=== PATIENT | male | born 1995 | race Caucasian/White ===

== ENCOUNTER 2016-05-08 19:32 | Emergency (ER) | payer OTHER ==
[2016-05-08 21:17] LABS: BASO % 0.5 % (0.0-1.0); EOS # 0.4 K/mm3 (0.0-0.50); EOS % 3.5 % (0.0-3.0); LARGE UNSTAINED CELL # 0.1 K/mm3 (0.0-0.4); LARGE UNSTAINED CELL % 1.4 % (0.0-4.0); LYMPH # 2.8 K/mm3 (1.5-6.5); LYMPH % 26.5 % (24.0-44.0); MEAN CORPUSCULAR HEMOGLOBIN 29.4 pg (27.0-33.0); MEAN CORPUSCULAR HGB CONC 33.6 g/dl (32.0-36.5); MEAN CORPUSCULAR VOLUME 87.5 fl (80.0-96.0); MONO # 0.5 K/mm3 (0.0-0.8); MONO % 4.7 % (0.0-5.0); NEUTROPHILS # 6.3 K/mm3 (1.8-7.7); NEUTROPHILS % 63.3 % (36.0-66.0); PLATELET COUNT, AUTOMATED 266 k/mm3 (150-450); RED CELL DISTRIBUTION WIDTH 11.6 % (11.5-14.5); WHITE BLOOD COUNT 9.9 K/mm3 (4.0-10.0)
[2016-05-08 21:21] LABS: ANION GAP 7 MEQ/L (8-16); BLOOD UREA NITROGEN 11 MG/DL (7-18); CALCIUM LEVEL 9.2 MG/DL (8.5-10.1); CARBON DIOXIDE LEVEL 30 MEQ/L (21-32); CHLORIDE LEVEL 105 MEQ/L (98-107); CREATININE FOR GFR 1.14 MG/DL (0.70-1.30); FREE T4 1.12 NG/DL (0.78-1.33); GLUCOSE, FASTING 95 MG/DL (70-105); PHOSPHORUS LEVEL 3.3 MG/DL (2.5-4.9); SODIUM LEVEL 142 MEQ/L (136-145)
--- NOTE | 2016-05-08 23:04 | EDDOCDS ---
Physician Documentation [facility] Name: Tee Vargas Age: 20 yrs Sex: Male : 1995 Arrival Date: 05/08/2016 Time: 19:32 Bed 10 Private MD: Disposition: 05/08/16 22:52 Discharged to Home/Self Care. Impression: Chest pain, unspecified, Palpitations. - Condition is Stable. - Discharge Instructions: Nonspecific Chest Pain, Palpitations. - Medication Reconciliation, Local Pharmacy Hours, [facility] form. - Follow up: [facility], [facility]; When: 1 - 2 days; Reason: Recheck today's complaints. - Problem is new. - Symptoms have improved. - Notes: You were seen in the ED for chest pain and palpitations. Bloodwork along with EKG of the heart, chest Xray and cardiac monitoring showed no acute findings at this time. As you are feeling better you may return home to follow up with your primary doctor at [facility] for recheck and ongoing evaluation - please call in the morning to arrange to be seen. Return to the ED for any return of chest pain, trouble breathing, lightheadedness, loss of consciousness, or any other concerns. Historical: - Allergies: No known drug Allergies; - Home Meds: 1. OxyContin Oral Patient reports that last use was one week ago 2. ibuprofen 200 mg Oral cap 2 caps every 4-6 hours 3. Nasal Decongestant (phenylephrine) oral oral unknown dose and nasal decongestant medication. - PMHx: none; - PSHx: wisdom teeth removal; Tonsillectomy; - Social history: Smoking status: Patient uses tobacco products, heavy tobacco smoker. No barriers to communication noted, The patient speaks fluent Serbian, Speaks appropriately for age. - Family history: Not pertinent. - : The pt / caregiver states he / she is not on anticoagulants. Home medication list is obtained from the patient. - Exposure Risk Screening:: None identified. Vital Signs: 05/08 19:33 BP 184 / 89; Pulse 118; Resp 20; Temp 97.2(T); Pulse Ox 98% on R/A; Weight 86.18 kg / handy 189.99 lbs (R); Height 6 ft. 4 in. (193.04 cm) (R); Pain 2/10; 20:28 BP 167 / 97 (auto/); kas2 20:29 Pulse 88 MON; Pulse Ox 97% ; kas2 20:43 BP 151 / 82 (auto/); kas2 20:43 Pulse 72 MON; Pulse Ox 98% ; kas2 20:58 BP 145 / 80 (auto/); kas2 20:58 Pulse 68 MON; Pulse Ox 97% ; kas2 21:13 BP 147 / 80 (auto/); kas2 21:13 Pulse 74 MON; Pulse Ox 98% ; kas2 21:28 BP 142 / 77 (auto/); kas2 21:28 Pulse 66 MON; Pulse Ox 97% ; kas2 21:43 BP 137 / 72 (auto/); kas2 21:43 Pulse 66 MON; Pulse Ox 96% ; kas2 21:58 BP 139 / 74 (auto/); kas2 21:58 Pulse 68 MON; Pulse Ox 98% ; kas2 22:13 BP 133 / 74 (auto/); kas2 22:13 Pulse 60 MON; Pulse Ox 97% ; kas2 22:28 BP 139 / 72 (auto/); kas2 22:28 Pulse 60 MON; Pulse Ox 97% ; kas2 22:43 BP 138 / 73 (auto/); kas2 22:43 Pulse 60 MON; Pulse Ox 95% ; kas2 23:01 Resp 18; Temp 98.2(O); Pain 0/10; kas2 19:33 Body Mass Index 23.13 (86.18 kg, 193.04 cm) handy MDM: 19:44 ECG WITH READING ER PHYS+CARDIAG ordered. EDMS 20:46 Slot Key Person/Pulse Ox/q 30 min VS ordered. br1 20:46 IV Saline Lock ordered. br1 20:46 Rhythm Strip to chart ordered. br1 20:46 Undress patient appropriately for examination ordered. br1 20:47 Basic Metabolic Profile Ordered. EDMS 20:47 CBC with Diff Ordered. EDMS 20:47 Cardiac Injury Profile Ordered. EDMS 20:47 Troponin Ordered. EDMS 20:47 TSH with Free T4 Ordered. EDMS 20:47 Magnesium Level Ordered. EDMS 20:47 Phosphorous Level Ordered. EDMS 20:48 Chest, 2 View (pa\E\lat) Ordered. EDMS 20:48 D-Dimer Quant Ordered. EDMS 22:44 Basic Metabolic Profile Reviewed. br1 22:44 CBC with Diff Reviewed. br1 22:44 Cardiac Injury Profile Reviewed. br1 22:44 Troponin Reviewed. br1 22:44 TSH with Free T4 Reviewed. br1 22:44 Magnesium Level Reviewed. br1 22:44 Phosphorous Level Reviewed. br1 22:44 D-Dimer Quant Reviewed. br1 Signatures: Dispatcher [employer] Richardson Carrillo MD MD br1 Reed Evans RN RN Anabell Reddy RN RN kas2 MTDD
--- NOTE | 2016-05-08 23:05 | EDDOCDS ---
Nurse's Notes [facility] Name: Tee Vargas Age: 20 yrs Sex: Male : 1995 Arrival Date: 05/08/2016 Time: 19:32 Bed 10 Private MD: Diagnosis: Chest pain, unspecified;Palpitations Presentation: 05/08 19:39 Presenting complaint: Patient states: Patient reports difficulty breathing with heart jmb palpitations. Patient also reports tremors. Patient reports that symptoms started at 1 p.m. today. Adult Sepsis Screening: The patient does not have new or worsening altered mentation. Patient's respiratory rate is less than 22. Systolic blood pressure is greater than 100. Patient has a qSOFA score of 0- Negative Sepsis Screen. Suicide/Homicide risk assessment- the patient denies having any suicidal and/or homicidal ideations and does not present with any other emotional, behavioral or mental health complaints. 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 Transition of care: patient was not received from another setting of care. 19:39 Acuity: ANNALEE Level [address] [facility] 19:39 Method Of Arrival: Walkin/Carried/Asstd [facility] Triage Assessment: 19:41 General: Appears in no apparent distress. Pain: Denies pain. Pt Declines HIV testing. [facility] Neurological: Level of Consciousness is awake, alert, obeys commands, Oriented to person, place, time, Speech is normal, Facial symmetry appears normal, Facial symmetry: tongue is midline. Respiratory: Onset: The symptoms/episode began/occurred gradually, Airway is patent Respiratory effort is even, unlabored, Respiratory pattern is regular, symmetrical. GI: Abdomen is non- distended. Derm: Skin is pink, warm & dry. Musculoskeletal: Range of motion intact in all extremities. Historical: - Allergies: No known drug Allergies; - Home Meds: 1. OxyContin Oral Patient reports that last use was one week ago 2. ibuprofen 200 mg Oral cap 2 caps every 4-6 hours 3. Nasal Decongestant (phenylephrine) oral oral unknown dose and nasal decongestant medication. - PMHx: none; - PSHx: wisdom teeth removal; Tonsillectomy; - Social history: Smoking status: Patient uses tobacco products, heavy tobacco smoker. No barriers to communication noted, The patient speaks fluent Danish, Speaks appropriately for age. - Family history: Not pertinent. - : The pt / caregiver states he / she is not on anticoagulants. Home medication list is obtained from the patient. - Exposure Risk Screening:: None identified. Screenin:40 Screening information is obtained from the patient. Fall risk: No risks identified. kas2 Assistance ADL's: requires no assistance with activities of daily living. Abuse/DV Screen: The patient / caregiver reports he/she is: not in a situation that causes fear, pain or injury. Nutritional screening: No deficits noted. Advance Directives: Currently, there is no health care proxy. There is no active DNR order. There is no living will. There is no Power of Hadoop Developer. home support is adequate. Assessment: 20:39 General: Appears in no apparent distress, comfortable, well nourished, well groomed, kas2 Behavior is appropriate for age, cooperative. Pain: Denies pain. Neurological: Level of Consciousness is awake, alert, Oriented to person, place, time. Cardiovascular: Capillary refill < 3 seconds Heart tones S1 S2 present Rhythm is sinus tachycardia No ectopy. Chest pain is denied. Respiratory: Airway is patent Respiratory effort is even, unlabored, Respiratory pattern is regular, symmetrical, Breath sounds are clear bilaterally. Derm: Skin is intact, Skin is dry, Skin is pink, warm & dry. Skin temperature is warm. 21:22 General: Patient laying in bed watching TV. No apparent distress noted. Appears kas2 comfortable. Denies chest pain but complaining of shortness of breath. Call alas within reach. Will continue to monitor.. 22:50 General: Appears in no apparent distress, comfortable, Behavior is appropriate for age, kas2 cooperative. Pain: Denies pain. Neurological: Level of Consciousness is awake, alert, Oriented to person, place, time. Respiratory: Airway is patent Respiratory effort is even, unlabored, Respiratory pattern is regular, symmetrical. Derm: Skin is intact, Skin is dry, Skin is pink, warm & dry. Skin temperature is warm. Vital Signs: 19:33 BP 184 / 89; Pulse 118; Resp 20; Temp 97.2(T); Pulse Ox 98% on R/A; Weight 86.18 kg handy (R); Height 6 ft. 4 in. (193.04 cm) (R); Pain 2/10; 20:28 BP 167 / 97 (auto/); kas2 20:29 Pulse 88 MON; Pulse Ox 97% ; kas2 20:43 BP 151 / 82 (auto/); kas2 20:43 Pulse 72 MON; Pulse Ox 98% ; kas2 20:58 BP 145 / 80 (auto/); kas2 20:58 Pulse 68 MON; Pulse Ox 97% ; kas2 21:13 BP 147 / 80 (auto/); kas2 21:13 Pulse 74 MON; Pulse Ox 98% ; kas2 21:28 BP 142 / 77 (auto/); kas2 21:28 Pulse 66 MON; Pulse Ox 97% ; kas2 21:43 BP 137 / 72 (auto/); kas2 21:43 Pulse 66 MON; Pulse Ox 96% ; kas2 21:58 BP 139 / 74 (auto/); kas2 21:58 Pulse 68 MON; Pulse Ox 98% ; kas2 22:13 BP 133 / 74 (auto/); kas2 22:13 Pulse 60 MON; Pulse Ox 97% ; kas2 22:28 BP 139 / 72 (auto/); kas2 22:28 Pulse 60 MON; Pulse Ox 97% ; kas2 22:43 BP 138 / 73 (auto/); kas2 22:43 Pulse 60 MON; Pulse Ox 95% ; kas2 23:01 Resp 18; Temp 98.2(O); Pain 0/10; kas2 19:33 Body Mass Index 23.13 (86.18 kg, 193.04 cm) handy Vitals: 19:33 Log In Time: May 08, 2016 at 19:33. handy ED Course: 19:33 Patient visited by Paula Nieto PCA. handy 19:33 Patient moved to Waiting handy 19:34 Patient visited by Paula Nieto PCA. handy 19:34 Patient moved to Pre RCE handy 19:40 Triage Initiated jmb 20:18 Patient moved to PD ar3 20:22 Eloisa Neff,RN is Primary Nurse. jmb 20:22 Anabell Lenz,KATHE is Primary Nurse. jmb 20:22 Patient moved to 10 jmb 20:23 Richardson Koch MD is Attending Physician. br1 20:25 EKG done. (by ED staff). Reviewed by Richardson Koch MD. ar3 20:27 Patient visited by Kane, Wendy, WAFER PRODUCTION LEAD WORKER. ar3 20:40 Patient visited by Anabell Lenz RN. 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 Pulse ox on. NIBP on. kas2 20:40 Inserted saline lock: 20 gauge in right antecubital area and blood collected. The kas2 patient tolerated the procedure well. No procedures done that require assistance. 20:46 Patient visited by Richardson Koch MD. br1 21:01 Patient visited by Anabell Lenz RN. kas2 21:01 D-Dimer Quant Sent. kas2 21:01 Phosphorous Level Sent. kas2 21:01 Magnesium Level Sent. kas2 21:01 TSH with Free T4 Sent. kas2 21:01 Basic Metabolic Profile Sent. kas2 21:01 CBC with Diff Sent. kas2 21:01 Cardiac Injury Profile Sent. kas2 21:01 Troponin Sent. kas2 21:23 Patient visited by Anabell Lenz RN. kas2 21:56 Patient visited by Anabell Lenz RN. kas2 22:40 Patient visited by Anabell Lenz RN. kas2 22:49 Patient visited by Richardson Koch MD. br1 22:51 Patient visited by Anabell Lenz RN. kas2 22:51 [facility]. br1 23:02 The patient / caregiver is instructed regarding the plan of care and ED course. kas2 23:02 Discontinued IV bleeding controlled, pressure dressing applied, No redness/swelling at [facility] site. 23:03 Patient visited by Anabell Lenz RN. kas2 Order Results: Lab Order: Basic Metabolic Profile; SPEC'M 05/08/16 20:36 Test: GLUCOSE, FASTING; Value: 95; Range: 70-105; Units: MG/DL; Status: F Test: BLOOD UREA NITROGEN; Value: 11; Range: 7-18; Units: MG/DL; Status: F Test: CREATININE FOR GFR; Value: 1.14; Range: 0.70-1.30; Units: MG/DL; Status: F Test: SODIUM LEVEL; Value: 142; Range: 136-145; Units: MEQ/L; Status: F Test: POTASSIUM SERUM; Value: 4.0; Range: 3.5-5.1; Units: MEQ/L; Status: F Test: CHLORIDE LEVEL; Value: 105; Range: 98-107; Units: MEQ/L; Status: F Test: CARBON DIOXIDE LEVEL; Value: 30; Range: 21-32; Units: MEQ/L; Status: F Test: ANION GAP; Value: 7; Range: 8-16; Abnormal: Below low normal; Units: MEQ/L; Status: F Test: CALCIUM LEVEL; Value: 9.2; Range: 8.5-10.1; Units: MG/DL; Status: F Lab Order: CBC with Diff; SPEC'M 05/08/16 20:36 Test: WHITE BLOOD COUNT; Value: 9.9; Range: 4.0-10.0; Units: K/mm3; Status: F Test: RED BLOOD COUNT; Value: 4.88; Range: 4.30-6.10; Units: M/mm3; Status: F Test: HEMOGLOBIN; Value: 14.4; Range: 14.0-18.0; Units: g/dl; Status: F Test: HEMATOCRIT; Value: 42.7; Range: 42.0-52.0; Units: %; Status: F Test: MEAN CORPUSCULAR VOLUME; Value: 87.5; Range: 80.0-96.0; Units: fl; Status: F Test: MEAN CORPUSCULAR HEMOGLOBIN; Value: 29.4; Range: 27.0-33.0; Units: pg; Status: F Test: MEAN CORPUSCULAR HGB CONC; Value: 33.6; Range: 32.0-36.5; Units: g/dl; Status: F Test: RED CELL DISTRIBUTION WIDTH; Value: 11.6; Range: 11.5-14.5; Units: %; Status: F Test: PLATELET COUNT, AUTOMATED; Value: 266; Range: 150-450; Units: k/mm3; Status: F Test: NEUTROPHILS %; Value: 63.3; Range: 36.0-66.0; Units: %; Status: F Test: LYMPH %; Value: 26.5; Range: 24.0-44.0; Units: %; Status: F Test: MONO %; Value: 4.7; Range: 0.0-5.0; Units: %; Status: F Test: EOS %; Value: 3.5; Range: 0.0-3.0; Abnormal: Above high normal; Units: %; Status: F Test: BASO %; Value: 0.5; Range: 0.0-1.0; Units: %; Status: F Test: LARGE UNSTAINED CELL %; Value: 1.4; Range: 0.0-4.0; Units: %; Status: F Test: NEUTROPHILS #; Value: 6.3; Range: 1.8-7.7; Units: K/mm3; Status: F Test: LYMPH #; Value: 2.8; Range: 1.5-6.5; Units: K/mm3; Status: F Test: MONO #; Value: 0.5; Range: 0.0-0.8; Units: K/mm3; Status: F Test: EOS #; Value: 0.4; Range: 0.0-0.50; Units: K/mm3; Status: F Test: BASO #; Value: 0.0; Range: 0.0-0.2; Units: K/mm3; Status: F Test: LARGE UNSTAINED CELL #; Value: 0.1; Range: 0.0-0.4; Units: K/mm3; Status: F Lab Order: Cardiac Injury Profile; SPEC'M 05/08/16 20:36 Test: CPK CREATINE PHOSPHOKINASE; Value: 106; Range: 39-308; Units: U/L; Status: F Test: CK-MB VALUE MASS; Value: 1.0; Range: 0.0-3.6; Units: NG/ML; Status: F Test: MB/CK RELATIVE INDEX; Value: 0.94; Range: < OR =4; Status: F Test Note: ; DIAGNOSIS CRITERIA MMB ng/ml Relative Index (RI) NON-AMI < or = 5 N/A VIRK ZONE > 5 < or = 4 AMI > 5 > 4 Lab Order: Troponin; SPEC'M 05/08/16 20:36 Test: TROPONIN I; Value: < 0.02; Range: < 0.10; Units: NG/ML; Status: F Test Note: ; Troponin I Reference Interval for [employer] LOCI: 99th Percentile= 0.00-0.045 ng/ml Risk Stratification: <= 0.10 ng/ml Decreased Risk for Adverse Clinical Events. 0.10-1.50 ng/ml Increased Risk for Adverse Clinical Events. Evaluation of additional criterion and/or repeat testing in 2-6 hours is suggested to rule out myocardial damage. >= 1.50 ng/ml Indicative of Myocardial Injury. Lab Order: TSH with Free T4; SPEC' 05/08/16 20:36 Test: THYROID STIMULATING HORMONE; Value: 0.854; Range: 0.463-3.98; Units: uIU/ML; Status: F Test: FREE T4; Value: 1.12; Range: 0.78-1.33; Units: NG/DL; Status: F Lab Order: Magnesium Level; SPEC' 05/08/16 20:36 Test: MAGNESIUM LEVEL; Value: 2.0; Range: 1.4-2.0; Units: MG/DL; Status: F Lab Order: Phosphorous Level; SPEC 05/08/16 20:36 Test: PHOSPHORUS LEVEL; Value: 3.3; Range: 2.5-4.9; Units: MG/DL; Status: F Lab Order: D-Dimer Quant; SPEC 05/08/16 20:36 Test: D-DIMER QUANT; Value: < 270.0; Range: <500; Units: ng/ml; Status: F Outcome: 22:52 Discharge ordered by Provider. br1 23:01 Discharge Assessment: patient administered narcotics - no. The following High Risk [facility] Discharge criteria are identified: None. Discharged to home ambulatory, with friend. Condition: good Condition: stable Condition: improved. CT Study completed. Property :Personal belongings accompany Pt. 23:03 Patient left the ED. kas2 Signatures: Richardson Koch MD MD br1 Wendy Middleton, WAFER PRODUCTION LEAD WORKER WAFER PRODUCTION LEAD WORKER ar3 Paula Nieto, WAFER PRODUCTION LEAD WORKER WAFER PRODUCTION LEAD WORKER Reed Sarah,RN RN Anabell Reddy,KATHE RN kas2 MTDD
--- NOTE | 2016-05-09 02:01 | REP ---
Clinical: Acute chest pain . Comparison: None . Technique: PA and lateral. Findings: The mediastinum and cardiac silhouette are normal. The lung choi are clear and without acute consolidation, effusion, or pneumothorax. The skeletal structures are intact and normal. Impression: 1. No acute cardiopulmonary process. Signed by Abdullahi Atkinson MD 05/09/2016 01:53 A
--- NOTE | 2016-05-10 17:37 | ECGEPIP ---
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
--- NOTE | 2016-05-11 00:04 | EDDOCDS ---
Nurse's Notes [facility] Name: Tee Vargas Age: 20 yrs Sex: Male : 1995 Arrival Date: 05/08/2016 Time: 19:32 Bed 10 Private MD: Diagnosis: Chest pain, unspecified;Palpitations Presentation: 05/08 19:39 Presenting complaint: Patient states: Patient reports difficulty breathing with heart jmb palpitations. Patient also reports tremors. Patient reports that symptoms started at 1 p.m. today. Adult Sepsis Screening: The patient does not have new or worsening altered mentation. Patient's respiratory rate is less than 22. Systolic blood pressure is greater than 100. Patient has a qSOFA score of 0- Negative Sepsis Screen. Suicide/Homicide risk assessment- the patient denies having any suicidal and/or homicidal ideations and does not present with any other emotional, behavioral or mental health complaints. 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 Transition of care: patient was not received from another setting of care. 19:39 Acuity: ANNALEE Level 3 [facility] 19:39 Method Of Arrival: Walkin/Carried/Asstd [facility] Triage Assessment: 19:41 General: Appears in no apparent distress. Pain: Denies pain. Pt Declines HIV testing. [facility] Neurological: Level of Consciousness is awake, alert, obeys commands, Oriented to person, place, time, Speech is normal, Facial symmetry appears normal, Facial symmetry: tongue is midline. Respiratory: Onset: The symptoms/episode began/occurred gradually, Airway is patent Respiratory effort is even, unlabored, Respiratory pattern is regular, symmetrical. GI: Abdomen is non- distended. Derm: Skin is pink, warm & dry. Musculoskeletal: Range of motion intact in all extremities. Historical: - Allergies: No known drug Allergies; - Home Meds: 1. OxyContin Oral Patient reports that last use was one week ago 2. ibuprofen 200 mg Oral cap 2 caps every 4-6 hours 3. Nasal Decongestant (phenylephrine) oral oral unknown dose and nasal decongestant medication. - PMHx: none; - PSHx: wisdom teeth removal; Tonsillectomy; - Social history: Smoking status: Patient uses tobacco products, heavy tobacco smoker. No barriers to communication noted, The patient speaks fluent Slovenian, Speaks appropriately for age. - Family history: Not pertinent. - : The pt / caregiver states he / she is not on anticoagulants. Home medication list is obtained from the patient. - Exposure Risk Screening:: None identified. Screenin:40 Screening information is obtained from the patient. Fall risk: No risks identified. kas2 Assistance ADL's: requires no assistance with activities of daily living. Abuse/DV Screen: The patient / caregiver reports he/she is: not in a situation that causes fear, pain or injury. Nutritional screening: No deficits noted. Advance Directives: Currently, there is no health care proxy. There is no active DNR order. There is no living will. There is no Power of Hospital Admissions Clerk. home support is adequate. Assessment: 20:39 General: Appears in no apparent distress, comfortable, well nourished, well groomed, kas2 Behavior is appropriate for age, cooperative. Pain: Denies pain. Neurological: Level of Consciousness is awake, alert, Oriented to person, place, time. Cardiovascular: Capillary refill < 3 seconds Heart tones S1 S2 present Rhythm is sinus tachycardia No ectopy. Chest pain is denied. Respiratory: Airway is patent Respiratory effort is even, unlabored, Respiratory pattern is regular, symmetrical, Breath sounds are clear bilaterally. Derm: Skin is intact, Skin is dry, Skin is pink, warm & dry. Skin temperature is warm. 21:22 General: Patient laying in bed watching TV. No apparent distress noted. Appears kas2 comfortable. Denies chest pain but complaining of shortness of breath. Call alas within reach. Will continue to monitor.. 22:50 General: Appears in no apparent distress, comfortable, Behavior is appropriate for age, kas2 cooperative. Pain: Denies pain. Neurological: Level of Consciousness is awake, alert, Oriented to person, place, time. Respiratory: Airway is patent Respiratory effort is even, unlabored, Respiratory pattern is regular, symmetrical. Derm: Skin is intact, Skin is dry, Skin is pink, warm & dry. Skin temperature is warm. Vital Signs: 19:33 BP 184 / 89; Pulse 118; Resp 20; Temp 97.2(T); Pulse Ox 98% on R/A; Weight 86.18 kg handy (R); Height 6 ft. 4 in. (193.04 cm) (R); Pain 2/10; 20:28 BP 167 / 97 (auto/); kas2 20:29 Pulse 88 MON; Pulse Ox 97% ; kas2 20:43 BP 151 / 82 (auto/); kas2 20:43 Pulse 72 MON; Pulse Ox 98% ; kas2 20:58 BP 145 / 80 (auto/); kas2 20:58 Pulse 68 MON; Pulse Ox 97% ; kas2 21:13 BP 147 / 80 (auto/); kas2 21:13 Pulse 74 MON; Pulse Ox 98% ; kas2 21:28 BP 142 / 77 (auto/); kas2 21:28 Pulse 66 MON; Pulse Ox 97% ; kas2 21:43 BP 137 / 72 (auto/); kas2 21:43 Pulse 66 MON; Pulse Ox 96% ; kas2 21:58 BP 139 / 74 (auto/); kas2 21:58 Pulse 68 MON; Pulse Ox 98% ; kas2 22:13 BP 133 / 74 (auto/); kas2 22:13 Pulse 60 MON; Pulse Ox 97% ; kas2 22:28 BP 139 / 72 (auto/); kas2 22:28 Pulse 60 MON; Pulse Ox 97% ; kas2 22:43 BP 138 / 73 (auto/); kas2 22:43 Pulse 60 MON; Pulse Ox 95% ; kas2 23:01 Resp 18; Temp 98.2(O); Pain 0/10; kas2 19:33 Body Mass Index 23.13 (86.18 kg, 193.04 cm) handy Vitals: 19:33 Log In Time: May 08, 2016 at 19:33. handy ED Course: 19:33 Patient visited by Paula Nieto PCA. handy 19:33 Patient moved to Waiting handy 19:34 Patient visited by Paula Nieto PCA. handy 19:34 Patient moved to Pre RCE handy 19:40 Triage Initiated jmb 20:18 Patient moved to PD ar3 20:22 Eloisa Neff,RN is Primary Nurse. jmb 20:22 Anabell Lenz,KATHE is Primary Nurse. jmb 20:22 Patient moved to 10 jmb 20:23 Rhea Koch MD is Attending Physician. br1 20:25 EKG done. (by ED staff). Reviewed by Rhea Koch MD. ar3 20:27 Patient visited by Kane, Wendy, CLOUD ADMINISTRATOR. ar3 20:40 Patient visited by Anabell Lenz RN. kas2 20:40 monitor and storage bin tender on. Pulse ox on. NIBP on. kas2 20:40 Inserted saline lock: 20 gauge in right antecubital area and blood collected. The kas2 patient tolerated the procedure well. No procedures done that require assistance. 20:46 Patient visited by Rhea Koch MD. br1 21:01 Patient visited by Anabell Lenz RN. kas2 21:01 D-Dimer Quant Sent. kas2 21:01 Phosphorous Level Sent. kas2 21:01 Magnesium Level Sent. kas2 21:01 TSH with Free T4 Sent. kas2 21:01 Basic Metabolic Profile Sent. [facility] 21:01 CBC with Diff Sent. [facility] 21:01 Cardiac Injury Profile Sent. [facility] 21:01 Troponin Sent. kas2 21:23 Patient visited by Anabell Lenz RN. kas2 21:56 Patient visited by Anabell Lenz RN. kas2 22:40 Patient visited by Anabell Lenz RN. kas2 22:49 Patient visited by Rhea Koch MD. br1 22:51 Patient visited by Anabell Lenz RN. kas2 22:51 [facility]. br1 23:02 The patient / caregiver is instructed regarding the plan of care and ED course. [facility] 23:02 Discontinued IV bleeding controlled, pressure dressing applied, No redness/swelling at [facility] site. 23:03 Patient visited by Anabell Lenz RN. [facility] 02 02:05 Chest, 2 View (pa\E\lat) Returned. EDMS 11:13 T-Sheet-- Draft Copy was scanned into [employer] and attached to record. 11:13 ECG/EKG was scanned into [employer] and attached to record. 05/10 18:15 EKG-ADULT Returned. EDMS Order Results: Lab Order: Basic Metabolic Profile; SPEC'M 05/08/16 20:36 Test: GLUCOSE, FASTING; Value: 95; Range: 70-105; Units: MG/DL; Status: F Test: BLOOD UREA NITROGEN; Value: 11; Range: 7-18; Units: MG/DL; Status: F Test: CREATININE FOR GFR; Value: 1.14; Range: 0.70-1.30; Units: MG/DL; Status: F Test: SODIUM LEVEL; Value: 142; Range: 136-145; Units: MEQ/L; Status: F Test: POTASSIUM SERUM; Value: 4.0; Range: 3.5-5.1; Units: MEQ/L; Status: F Test: CHLORIDE LEVEL; Value: 105; Range: 98-107; Units: MEQ/L; Status: F Test: CARBON DIOXIDE LEVEL; Value: 30; Range: 21-32; Units: MEQ/L; Status: F Test: ANION GAP; Value: 7; Range: 8-16; Abnormal: Below low normal; Units: MEQ/L; Status: F Test: CALCIUM LEVEL; Value: 9.2; Range: 8.5-10.1; Units: MG/DL; Status: F Lab Order: CBC with Diff; SPEC'M 05/08/16 20:36 Test: WHITE BLOOD COUNT; Value: 9.9; Range: 4.0-10.0; Units: K/mm3; Status: F Test: RED BLOOD COUNT; Value: 4.88; Range: 4.30-6.10; Units: M/mm3; Status: F Test: HEMOGLOBIN; Value: 14.4; Range: 14.0-18.0; Units: g/dl; Status: F Test: HEMATOCRIT; Value: 42.7; Range: 42.0-52.0; Units: %; Status: F Test: MEAN CORPUSCULAR VOLUME; Value: 87.5; Range: 80.0-96.0; Units: fl; Status: F Test: MEAN CORPUSCULAR HEMOGLOBIN; Value: 29.4; Range: 27.0-33.0; Units: pg; Status: F Test: MEAN CORPUSCULAR HGB CONC; Value: 33.6; Range: 32.0-36.5; Units: g/dl; Status: F Test: RED CELL DISTRIBUTION WIDTH; Value: 11.6; Range: 11.5-14.5; Units: %; Status: F Test: PLATELET COUNT, AUTOMATED; Value: 266; Range: 150-450; Units: k/mm3; Status: F Test: NEUTROPHILS %; Value: 63.3; Range: 36.0-66.0; Units: %; Status: F Test: LYMPH %; Value: 26.5; Range: 24.0-44.0; Units: %; Status: F Test: MONO %; Value: 4.7; Range: 0.0-5.0; Units: %; Status: F Test: EOS %; Value: 3.5; Range: 0.0-3.0; Abnormal: Above high normal; Units: %; Status: F Test: BASO %; Value: 0.5; Range: 0.0-1.0; Units: %; Status: F Test: LARGE UNSTAINED CELL %; Value: 1.4; Range: 0.0-4.0; Units: %; Status: F Test: NEUTROPHILS #; Value: 6.3; Range: 1.8-7.7; Units: K/mm3; Status: F Test: LYMPH #; Value: 2.8; Range: 1.5-6.5; Units: K/mm3; Status: F Test: MONO #; Value: 0.5; Range: 0.0-0.8; Units: K/mm3; Status: F Test: EOS #; Value: 0.4; Range: 0.0-0.50; Units: K/mm3; Status: F Test: BASO #; Value: 0.0; Range: 0.0-0.2; Units: K/mm3; Status: F Test: LARGE UNSTAINED CELL #; Value: 0.1; Range: 0.0-0.4; Units: K/mm3; Status: F Lab Order: Cardiac Injury Profile; SPEC'M 05/08/16 20:36 Test: CPK CREATINE PHOSPHOKINASE; Value: 106; Range: 39-308; Units: U/L; Status: F Test: CK-MB VALUE MASS; Value: 1.0; Range: 0.0-3.6; Units: NG/ML; Status: F Test: MB/CK RELATIVE INDEX; Value: 0.94; Range: < OR =4; Status: F Test Note: ; DIAGNOSIS CRITERIA MMB ng/ml Relative Index (RI) NON-AMI < or = 5 N/A VIRK ZONE > 5 < or = 4 AMI > 5 > 4 Lab Order: Troponin; SPEC'M 05/08/16 20:36 Test: TROPONIN I; Value: < 0.02; Range: < 0.10; Units: NG/ML; Status: F Test Note: ; Troponin I Reference Interval for Siemens [place] LOCI: 99th Percentile= 0.00-0.045 ng/ml Risk Stratification: <= 0.10 ng/ml Decreased Risk for Adverse Clinical Events. 0.10-1.50 ng/ml Increased Risk for Adverse Clinical Events. Evaluation of additional criterion and/or repeat testing in 2-6 hours is suggested to rule out myocardial damage. >= 1.50 ng/ml Indicative of Myocardial Injury. Lab Order: TSH with Free T4; SPEC' 05/08/16 20:36 Test: THYROID STIMULATING HORMONE; Value: 0.854; Range: 0.463-3.98; Units: uIU/ML; Status: F Test: FREE T4; Value: 1.12; Range: 0.78-1.33; Units: NG/DL; Status: F Lab Order: Magnesium Level; [facility] 05/08/16 20:36 Test: MAGNESIUM LEVEL; Value: 2.0; Range: 1.4-2.0; Units: MG/DL; Status: F Lab Order: Phosphorous Level; [facility] 05/08/16 20:36 Test: PHOSPHORUS LEVEL; Value: 3.3; Range: 2.5-4.9; Units: MG/DL; Status: F Lab Order: D-Dimer Quant; [facility]' 05/08/16 20:36 Test: D-DIMER QUANT; Value: < 270.0; Range: <500; Units: ng/ml; Status: F Radiology Order: EKG-ADULT Test: EKG-ADULT REASON FOR EXAMINATION: Shortness of Breath; Stationary ECG Study; [facility] - ED; ; Test Date: 2016-05-08; Pat Name: TEE VARGAS Department:; Room: -; Gender: M 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 The lung choi are clear and; without acute consolidation, effusion, or pneumothorax. The skeletal structures; are intact and normal.; ; Impression:; 1. No acute cardiopulmonary process.; ; ; Signed by; Abdullahi Atkinson MD 05/09/2016 01:53 A; Outcome: 05/08 22:52 Discharge ordered by Provider. br1 23:01 Discharge Assessment: patient administered narcotics - no. The following High Risk [facility] Discharge criteria are identified: None. Discharged to home ambulatory, with friend. Condition: good Condition: stable Condition: improved. CT Study completed. Property :Personal belongings accompany Pt. 23:03 Patient left the ED. kas2 Signatures: Dispatcher [employer] EDMS Elsie Nieves, Reg Reg Rhea Victor MD MD br1 Wendy Middleton, CLOUD ADMINISTRATOR CLOUD ADMINISTRATOR ar3 Paula Nieto, CLOUD ADMINISTRATOR CLOUD ADMINISTRATOR Reed Sarah RN RN Anabell Reddy RN RN kas2 Chart Complete MTDD
--- NOTE | 2016-05-11 00:04 | EDDOCDS ---
Physician Documentation [facility] Name: Tee Vargas Age: 20 yrs Sex: Male : 1995 Arrival Date: 05/08/2016 Time: 19:32 Bed 10 Private MD: Disposition: 05/08/16 22:52 Discharged to Home/Self Care. Impression: Chest pain, unspecified, Palpitations. - Condition is Stable. - Discharge Instructions: Nonspecific Chest Pain, Palpitations. - Medication Reconciliation, Local Pharmacy Hours, [facility], [place] form. - Follow up: [place], [facility]; When: 1 - 2 days; Reason: Recheck today's complaints. - Problem is new. - Symptoms have improved. - Notes: You were seen in the ED for chest pain and palpitations. Bloodwork along with EKG of the heart, chest Xray and cardiac monitoring showed no acute findings at this time. As you are feeling better you may return home to follow up with your primary doctor at [place] for recheck and ongoing evaluation - please call in the morning to arrange to be seen. Return to the ED for any return of chest pain, trouble breathing, lightheadedness, loss of consciousness, or any other concerns. Historical: - Allergies: No known drug Allergies; - Home Meds: 1. OxyContin Oral Patient reports that last use was one week ago 2. ibuprofen 200 mg Oral cap 2 caps every 4-6 hours 3. Nasal Decongestant (phenylephrine) oral oral unknown dose and nasal decongestant medication. - PMHx: none; - PSHx: wisdom teeth removal; Tonsillectomy; - Social history: Smoking status: Patient uses tobacco products, heavy tobacco smoker. No barriers to communication noted, The patient speaks fluent Romansh, Speaks appropriately for age. - Family history: Not pertinent. - : The pt / caregiver states he / she is not on anticoagulants. Home medication list is obtained from the patient. - Exposure Risk Screening:: None identified. Vital Signs: 05/08 19:33 BP 184 / 89; Pulse 118; Resp 20; Temp 97.2(T); Pulse Ox 98% on R/A; Weight 86.18 kg / handy 189.99 lbs (R); Height 6 ft. 4 in. (193.04 cm) (R); Pain 2/10; 20:28 BP 167 / 97 (auto/); kas2 20:29 Pulse 88 MON; Pulse Ox 97% ; kas2 20:43 BP 151 / 82 (auto/); kas2 20:43 Pulse 72 MON; Pulse Ox 98% ; kas2 20:58 BP 145 / 80 (auto/); kas2 20:58 Pulse 68 MON; Pulse Ox 97% ; kas2 21:13 BP 147 / 80 (auto/); kas2 21:13 Pulse 74 MON; Pulse Ox 98% ; kas2 21:28 BP 142 / 77 (auto/); kas2 21:28 Pulse 66 MON; Pulse Ox 97% ; kas2 21:43 BP 137 / 72 (auto/); kas2 21:43 Pulse 66 MON; Pulse Ox 96% ; kas2 21:58 BP 139 / 74 (auto/); kas2 21:58 Pulse 68 MON; Pulse Ox 98% ; kas2 22:13 BP 133 / 74 (auto/); kas2 22:13 Pulse 60 MON; Pulse Ox 97% ; kas2 22:28 BP 139 / 72 (auto/); kas2 22:28 Pulse 60 MON; Pulse Ox 97% ; kas2 22:43 BP 138 / 73 (auto/); kas2 22:43 Pulse 60 MON; Pulse Ox 95% ; kas2 23:01 Resp 18; Temp 98.2(O); Pain 0/10; kas2 19:33 Body Mass Index 23.13 (86.18 kg, 193.04 cm) handy MDM: 19:44 ECG WITH READING ER PHYS+CARDIAG ordered. EDMS 20:46 Steam Tunnel Feeder/Pulse Ox/q 30 min VS ordered. br1 20:46 IV Saline Lock ordered. br1 20:46 Rhythm Strip to chart ordered. br1 20:46 Undress patient appropriately for examination ordered. br1 20:47 Basic Metabolic Profile Ordered. EDMS 20:47 CBC with Diff Ordered. EDMS 20:47 Cardiac Injury Profile Ordered. EDMS 20:47 Troponin Ordered. EDMS 20:47 TSH with Free T4 Ordered. EDMS 20:47 Magnesium Level Ordered. EDMS 20:47 Phosphorous Level Ordered. EDMS 20:48 Chest, 2 View (pa\E\lat) Ordered. EDMS 20:48 D-Dimer Quant Ordered. EDMS 22:44 Basic Metabolic Profile Reviewed. br1 22:44 CBC with Diff Reviewed. br1 22:44 Cardiac Injury Profile Reviewed. br1 22:44 Troponin Reviewed. br1 22:44 TSH with Free T4 Reviewed. br1 22:44 Magnesium Level Reviewed. br1 22:44 Phosphorous Level Reviewed. br1 22:44 D-Dimer Quant Reviewed. br1 05/09 11:13 T-Sheet-- Draft Copy was scanned into [employer] and attached to record. gb 11:13 ECG/EKG was scanned into [employer] and attached to record. gb Signatures: Dispatcher [employer] EDMS Elsie Nieves, Reg Reg gb Richardson Koch MD MD br1 Reed Evans RN RN Anabell Reddy RN RN kas2 The chart was reviewed and I authenticate all verbal orders and agree with the evaluation and treatment provided.Attachments: 11:13 T-Sheet-- Draft Copy gb 11:13 ECG/EKG gb Chart Complete MTDD
--- NOTE | 2016-05-11 00:04 | EDDOCDS ---
Physician Documentation [facility] Name: Tee Vargas Age: 20 yrs Sex: Male : 1995 Arrival Date: 05/08/2016 Time: 19:32 Bed 10 Private MD: Disposition: 05/08/16 22:52 Discharged to Home/Self Care. Impression: Chest pain, unspecified, Palpitations. - Condition is Stable. - Discharge Instructions: Nonspecific Chest Pain, Palpitations. - Medication Reconciliation, Local Pharmacy Hours, [facility] form. - Follow up: [facility], [facility]; When: 1 - 2 days; Reason: Recheck today's complaints. - Problem is new. - Symptoms have improved. - Notes: You were seen in the ED for chest pain and palpitations. Bloodwork along with EKG of the heart, chest Xray and cardiac monitoring showed no acute findings at this time. As you are feeling better you may return home to follow up with your primary doctor at [facility] for recheck and ongoing evaluation - please call in the morning to arrange to be seen. Return to the ED for any return of chest pain, trouble breathing, lightheadedness, loss of consciousness, or any other concerns. Historical: - Allergies: No known drug Allergies; - Home Meds: 1. OxyContin Oral Patient reports that last use was one week ago 2. ibuprofen 200 mg Oral cap 2 caps every 4-6 hours 3. Nasal Decongestant (phenylephrine) oral oral unknown dose and nasal decongestant medication. - PMHx: none; - PSHx: wisdom teeth removal; Tonsillectomy; - Social history: Smoking status: Patient uses tobacco products, heavy tobacco smoker. No barriers to communication noted, The patient speaks fluent Serbian, Speaks appropriately for age. - Family history: Not pertinent. - : The pt / caregiver states he / she is not on anticoagulants. Home medication list is obtained from the patient. - Exposure Risk Screening:: None identified. Vital Signs: 05/08 19:33 BP 184 / 89; Pulse 118; Resp 20; Temp 97.2(T); Pulse Ox 98% on R/A; Weight 86.18 kg / handy 189.99 lbs (R); Height 6 ft. 4 in. (193.04 cm) (R); Pain 2/10; 20:28 BP 167 / 97 (auto/); kas2 20:29 Pulse 88 MON; Pulse Ox 97% ; kas2 20:43 BP 151 / 82 (auto/); kas2 20:43 Pulse 72 MON; Pulse Ox 98% ; kas2 20:58 BP 145 / 80 (auto/); kas2 20:58 Pulse 68 MON; Pulse Ox 97% ; kas2 21:13 BP 147 / 80 (auto/); kas2 21:13 Pulse 74 MON; Pulse Ox 98% ; kas2 21:28 BP 142 / 77 (auto/); kas2 21:28 Pulse 66 MON; Pulse Ox 97% ; kas2 21:43 BP 137 / 72 (auto/); kas2 21:43 Pulse 66 MON; Pulse Ox 96% ; kas2 21:58 BP 139 / 74 (auto/); kas2 21:58 Pulse 68 MON; Pulse Ox 98% ; kas2 22:13 BP 133 / 74 (auto/); kas2 22:13 Pulse 60 MON; Pulse Ox 97% ; kas2 22:28 BP 139 / 72 (auto/); kas2 22:28 Pulse 60 MON; Pulse Ox 97% ; kas2 22:43 BP 138 / 73 (auto/); kas2 22:43 Pulse 60 MON; Pulse Ox 95% ; kas2 23:01 Resp 18; Temp 98.2(O); Pain 0/10; kas2 19:33 Body Mass Index 23.13 (86.18 kg, 193.04 cm) handy MDM: 19:44 ECG WITH READING ER PHYS+CARDIAG ordered. EDMS 20:46 Sock Lining Examiner/Pulse Ox/q 30 min VS ordered. br1 20:46 IV Saline Lock ordered. br1 20:46 Rhythm Strip to chart ordered. br1 20:46 Undress patient appropriately for examination ordered. br1 20:47 Basic Metabolic Profile Ordered. EDMS 20:47 CBC with Diff Ordered. EDMS 20:47 Cardiac Injury Profile Ordered. EDMS 20:47 Troponin Ordered. EDMS 20:47 TSH with Free T4 Ordered. EDMS 20:47 Magnesium Level Ordered. EDMS 20:47 Phosphorous Level Ordered. EDMS 20:48 Chest, 2 View (pa\E\lat) Ordered. EDMS 20:48 D-Dimer Quant Ordered. EDMS 22:44 Basic Metabolic Profile Reviewed. br1 22:44 CBC with Diff Reviewed. br1 22:44 Cardiac Injury Profile Reviewed. br1 22:44 Troponin Reviewed. br1 22:44 TSH with Free T4 Reviewed. br1 22:44 Magnesium Level Reviewed. br1 22:44 Phosphorous Level Reviewed. br1 22:44 D-Dimer Quant Reviewed. br1 05/09 11:13 T-Sheet-- Draft Copy was scanned into [employer] and attached to record. gb 11:13 ECG/EKG was scanned into [employer] and attached to record. gb Signatures: Dispatcher [employer] EDMS Elsie Nieves, Reg Reg gb Richardson Koch MD MD br1 Reed Evans RN RN Anabell Reddy RN RN kas2 The chart was reviewed and I authenticate all verbal orders and agree with the evaluation and treatment provided.Attachments: 11:13 T-Sheet-- Draft Copy gb 11:13 ECG/EKG gb Chart Complete MTDD
== END 2016-05-08 23:03 | disposition home or self-care (01) ==
LOC: M ED 19:32
DX: R07.9 Chest pain, unspecified (principal); R00.2 Palpitations; Z72.0 Tobacco use

== ENCOUNTER 2017-05-09 04:17 | Inpatient (IN) | payer SELFPAY, OTHER ==
[2017-05-09 05:05] LABS: HEMATOCRIT 42.6 % (42.0-52.0); HEMOGLOBIN 14.7 g/dl (14.0-18.0); MEAN CORPUSCULAR HEMOGLOBIN 30.4 pg (27.0-33.0); MEAN CORPUSCULAR HGB CONC 34.5 g/dl (32.0-36.5); MEAN CORPUSCULAR VOLUME 88.2 fl (80.0-96.0); PLATELET COUNT, AUTOMATED 231 10^3/uL (150-450); RED BLOOD COUNT 4.83 10^6/uL (4.30-6.10); RED CELL DISTRIBUTION WIDTH 11.9 % (11.5-14.5); WHITE BLOOD COUNT 7.5 10^3/uL (4.0-10.0)
[2017-05-09 05:30] LABS: AMPHETAMINES LEVEL URINE NEGATIVE (NEGATIVE); BARBITURATES URINE NEGATIVE (NEGATIVE); BENZODIAZEPINES URINE NEGATIVE (NEGATIVE); CANNABINOIDS URINE NEGATIVE (NEGATIVE); COCAINE METABOLITE URINE NEGATIVE (NEGATIVE); METHADONE URINE NEGATIVE (NEGATIVE); OPIATES URINE POSITIVE (NEGATIVE); PHENCYCLIDINE URINE NEGATIVE (NEGATIVE)
[2017-05-09 05:58] LABS: ALBUMIN 4.7 GM/DL (3.2-5.2); ALBUMIN/GLOBULIN RATIO 1.38 (1.00-1.93); ALKALINE PHOSPHATASE 54 U/L (45-117); ALT/SGPT 23 U/L (12-78); ANION GAP 10 MEQ/L (8-16); AST/SGOT 13 U/L (7-37); BILIRUBIN,DIRECT 0.1 MG/DL (0.0-0.2); BILIRUBIN,TOTAL 0.5 MG/DL (0.2-1.0); BLOOD UREA NITROGEN 15 MG/DL (7-18); CARBON DIOXIDE LEVEL 29 MEQ/L (21-32); CHLORIDE LEVEL 104 MEQ/L (98-107); CREATININE FOR GFR 0.97 MG/DL (0.70-1.30); ETHYL ALCOHOL (ETHANOL) 0.007 % (0.000-0.010); GLUCOSE, FASTING 137 MG/DL (70-100); POTASSIUM SERUM 3.9 MEQ/L (3.5-5.1); SALICYLATE LEVEL < 1.7 MG/DL (5.0-30.0); SODIUM LEVEL 143 MEQ/L (136-145); TOTAL PROTEIN 8.1 GM/DL (6.4-8.2)
[2017-05-09 06:00] LABS: ACETAMINOPHEN LEVEL < 2.0 UG/ML (10.0-30.0)
[2017-05-09] MEDS ORDERED: MAALOX 30 ML SUSP *UDC PO (10:15)
[2017-05-09] MEDS ORDERED: traZODone 50 MG TAB PO (10:15)
[2017-05-09] MEDS ORDERED: MOM 30ML SUSPENSION UDC PO (10:15)
== END 2017-05-09 13:50 | disposition home or self-care (01) | DRG 754 ==
LOC: M ED 04:17 → M ED INP 10:06 → M PSY 11:05
DX: F43.21 Adjustment disorder with depressed mood (principal); F17.210 Nicotine dependence, cigarettes, uncomplicated; Z63.4 Disappearance and death of family member